=== PATIENT | female | born 1940 | race Caucasian/White ===

== ENCOUNTER 2017-04-02 09:57 | Day surgery (SDC) | payer MEDICARE, OTHER ==
--- NOTE | ~2017-04-02 | EGD ---
EGD REPORT [facility] [address] [address] NAME: BETZY PÉREZ : [birth year] STATUS : REG [facility]#: [id number] AGE: 76 ADM/REG DATE : 04/02/17 MR#: [id number] REPORT SERV DATE: 04/02/17 DICTATED BY: DIONISIO BENOIT DATE: 04/02/17 REPORT STATUS : Draft TRANSCRIBED BY: [employer] DATE: 04/02/17 Endoscopy Center Patient Name: Betzy Pérez Date of : 1940 Attending MD: DIONISIO BENOIT, Procedure Date No Time: 04/02/2017 Procedure: ERCP Indications: Pancreatic duct stone Referring MD: PATT CRESPO III, MD, THALIA CORCORAN MD Medicines: General Anesthesia Complications: No immediate complications. Estimated blood loss: None Procedure: Pre-Anesthesia Assessment: - ASA Grade Assessment: III - A patient with severe systemic disease. After obtaining informed consent, the scope was passed under direct vision. Throughout the procedure, the patient's blood pressure, pulse, and oxygen saturations were monitored continuously. The Duodenoscope was introduced through the mouth, and advanced to the duodenum without successful cannulation. 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 Findings: The major papilla was flat. The ventral pancreatic duct was deeply cannulated with the short-nosed traction sphincterotome. Contrast was injected. The ventral pancreatic duct could not be cannulated with the short-nosed traction sphincterotome. Despite using standard and tapered tip sphincterotome. Impression: - The major papilla appeared to be flat. Recommendation: - Return to previous diet. - Continue present medications. - Will discuss repeating another date vs referral to tertiary center. Procedure Code(s): --- Professional --- 09308, 52, Endoscopic retrograde cholangiopancreatography (ERCP); diagnostic, including collection of specimen(s) by brushing or washing, when performed (separate procedure) Diagnosis Code(s): --- Professional --- K83.9, Disease of biliary tract, unspecified EGD REPORT [facility] [address] [address] NAME: BETZY PÉREZ : [birth year] STATUS : [place] [facility] [place]#: [id number] AGE: 76 ADM/REG DATE : 04/02/17 MR#: [id number] REPORT SERV DATE: 04/02/17 DICTATED BY: DIONISIO BENOIT DATE: 04/02/17 REPORT STATUS : Draft TRANSCRIBED BY: [employer] DATE: 04/02/17 K86.8, Other specified diseases of pancreas CPT copyright 2013 [employer] [place] [employer]. All rights reserved. The codes documented in this report are preliminary and upon tattoo identifier review may be revised to meet current compliance requirements. DIONISIO BENOIT, 04/02/2017 1:07 PM Number of Addenda: 0 Note Initiated On: 04/02/2017 12:02 PM [facility] [address] [address]
--- NOTE | ~2017-04-02 | EGD ---
EGD REPORT [facility] [address] [address] NAME: BETZY PÉREZ : [birth year] STATUS : REG [facility]#: [id number] AGE: 76 ADM/REG DATE : 04/02/17 MR#: [id number] REPORT SERV DATE: 04/02/17 DICTATED BY: DIONISIO BENOIT DATE: 04/02/17 REPORT STATUS : Draft TRANSCRIBED BY: [facility] DATE: 04/02/17 Endoscopy Center Patient Name: Betzy Pérez Date of : 1940 Attending MD: DIONISIO BENOIT, Procedure Date No Time: 04/02/2017 Procedure: Upper EUS Indications: Dilated pancreatic duct on CT scan, Chronic pancreatitis Referring MD: PATT CRESPO III, MD, THALIA CORCORAN MD Medicines: General Anesthesia Complications: No immediate complications. Estimated blood loss: None. Procedure: Pre-Anesthesia Assessment: - ASA Grade Assessment: III - A patient with severe systemic disease. After obtaining informed consent, the endoscope was passed under direct vision. Throughout the procedure, the patient's blood pressure, pulse, and oxygen saturations were monitored continuously. The Endoscope was introduced through the mouth, and advanced to the second part of duodenum. The GIF [id number] was introduced through the mouth, and advanced to the second part of duodenum. Findings: Endoscopic Finding : The examined esophagus was endoscopically normal. Patchy mild inflammation characterized by erosions was found in the entire examined stomach. Biopsies were taken with a cold forceps for histology. Verification of patient identification for the specimen was done. Estimated blood loss was minimal. The cardia and gastric fundus were normal on retroflexion. The examined duodenum was endoscopically normal. Endosonographic Finding : The pancreatic duct had a dilated endosonographic appearance in the body of the pancreas and in the tail of the pancreas. The pancreatic duct measured up to 3 mm in diameter. The pancreatic duct had intraductal stones in the body of the pancreas. The pancreatic duct measured up to 2.5 mm in diameter. The pancreatic duct had a normal endosonographic appearance in the pancreatic head. There was no sign of significant endosonographic abnormality in the common bile duct. Pancreatic parenchymal abnormalities were noted in the entire pancreas. These consisted of lobularity. There was no sign of significant endosonographic abnormality in the EGD REPORT [place] [id number] [place]. [address] NAME: BETZY PÉREZ : 44 STATUS : [place] [facility] [place] [id number] AGE: 76 ADM/REG DATE : 04/02/17 MR#: [id number] REPORT SERV DATE: 04/02/17 DICTATED BY: DIONISIO BENOIT DATE: 04/02/17 REPORT STATUS : Draft TRANSCRIBED BY: [employer] DATE: 04/02/17 examined duodenum. Endosonographic images of the stomach were unremarkable. There was no sign of significant endosonographic abnormality in the esophagus. Impression: - Normal esophagus. - Gastritis. Biopsied. - Normal examined duodenum. - The pancreatic duct had a dilated endosonographic appearance in the body of the pancreas and in the tail of the pancreas. The pancreatic duct measured up to 3 mm in diameter. - The pancreatic duct had intraductal stones in the body of the pancreas. The pancreatic duct measured up to 2.5 mm in diameter. - The pancreatic duct had a normal endosonographic appearance in the pancreatic head. - There was no sign of significant pathology in the common bile duct. - Pancreatic parenchymal abnormalities consisting of lobularity were noted in the entire pancreas. - There was no sign of significant pathology in the examined duodenum. - Endosonographic images of the stomach were unremarkable. - There was no sign of significant pathology in the esophagus. Recommendation: - Return to previous diet. - Continue present medications. - Perform an ERCP today. Procedure Code(s): --- Professional --- 15739, Esophagogastroduodenoscopy, flexible, transoral; with endoscopic ultrasound examination, including the esophagus, stomach, and either the duodenum or a surgically altered stomach where the jejunum is examined distal to the anastomosis 68013, 59, Esophagogastroduodenoscopy, flexible, transoral; with biopsy, single or multiple Diagnosis Code(s): --- Professional --- K29.70, Gastritis, unspecified, without bleeding R93.3, Abnormal findings on diagnostic imaging of other parts of digestive tract K86.8, Other specified diseases of pancreas K86.9, Disease of pancreas, unspecified EGD REPORT [place] [address] [place]. [address] NAME: BETZY PÉREZ : 44 STATUS : [place] [facility] [place] [id number] AGE: 76 ADM/REG DATE : 04/02/17 MR#: [id number] REPORT SERV DATE: 04/02/17 DICTATED BY: DIONISIO BENOIT DATE: 04/02/17 REPORT STATUS : Draft TRANSCRIBED BY: [employer] DATE: 04/02/17 K86.1, Other chronic pancreatitis CPT copyright 2013 [employer]. All rights reserved. The codes documented in this report are preliminary and upon respooler review may be revised to meet current compliance requirements. DIONISIO BENOIT, 04/02/2017 1:04 PM Number of Addenda: 0 Note Initiated On: 04/02/2017 11:37 AM Scope Withdrawal Time 0 hours 0 minutes 0 seconds [address] [place] [address]
[~2017-04-02 09:57] MED LIST: ASAB PO; CREON DR 36,001 EACH PO; HUMALOG SC; LANTUS SC; LIOR10 PO; LOTREL1 CA2 PO; MULTIPLE VIT PO; NEUR300 PO; NORCO1 TA1 PO; PRILOSEC40 MG PO
[2017-06-13] MEDS ORDERED: ADVIL PO (10:18)
[2017-06-13] MEDS ORDERED: HOUR ENERGY PO (10:19)
== END 2017-04-02 17:14 | disposition home or self-care (01) ==
LOC: DMU 09:57
PROVIDERS: Internal Medicine Gastroenterology
PROC: 0FJB8ZZ Inspection of Hepatobiliary Duct, Via Natural or Artificial Opening Endoscopic (ICD-10-PCS; 2017-04-02)
PROC: 0DJ08ZZ Inspection of Upper Intestinal Tract, Via Natural or Artificial Opening Endoscopic (ICD-10-PCS; principal; 2017-04-02 11:30)
PROC: 0DB68ZX Excision of Stomach, Via Natural or Artificial Opening Endoscopic, Diagnostic (ICD-10-PCS; 2017-04-02 11:30)
DX: K29.70 Gastritis, unspecified, without bleeding (principal); K86.9 Disease of pancreas, unspecified; K86.89 Other specified diseases of pancreas; K86.1 Other chronic pancreatitis; R93.3 Abnormal findings on diagnostic imaging of other parts of digestive tract; I10 Essential (primary) hypertension; E11.9 Type 2 diabetes mellitus without complications; K21.9 Gastro-esophageal reflux disease without esophagitis; M19.90 Unspecified osteoarthritis, unspecified site; K83.9 Disease of biliary tract, unspecified; Z88.0 Allergy status to penicillin; Z88.2 Allergy status to sulfonamides; Z87.442 Personal history of urinary calculi; Z88.8 Allergy status to other drugs, medicaments and biological substances; Z98.41 Cataract extraction status, right eye; Z98.42 Cataract extraction status, left eye; Z90.710 Acquired absence of both cervix and uterus; Z90.49 Acquired absence of other specified parts of digestive tract
CPT/HCPCS: 74330; 82962; 88305; A9270-GY; C1725; C1769; J2405; Q9967